=== PATIENT | female | born 1995 | race African-American/Black ===

== ENCOUNTER 2020-10-22 20:00 | Emergency (ER) | payer OTHER, SELFPAY ==
[2020-10-22 20:11] VITALS: BP 108/68; PULSE 94; RESP 16; TEMP 36.3; O2SAT 99
--- NOTE | 2020-10-22 20:26 | ED.DENTAL ---
HPI - Dental/Oral General Chief complaint: Dental/Oral Stated complaint: mouth abscess Time Seen by Provider: 10/22/20 20:21 Source: patient and family Mode of arrival: ambulatory Limitations: no limitations History of Present Illness HPI Narrative: Patient with left-sided facial swelling with history of abscess and decay patient notes moderate aching pain to the left upper posterior molar where she does have some drainage patient on arrival to emergency department in the room no distress has not taken anything for her symptoms on arrival is in the room resting comfortably Related Data Allergies Allergy/AdvReac Type Severity Reaction Status Date / Time No Known Allergies Allergy Verified 10/22/20 20:12 Review of Systems Review of Systems: All systems reviewed & are unremarkable except as noted in HPI and below PMFSH Social History Social History (Updated 10/22/20 @ 20:28 by Joe Solis PA-C) Smoking status: Never smoker Exam Narrative: Exam Narrative: GENERAL: Well-appearing, well-nourished, and in no acute distress. HEAD: Normocephalic, atraumatic. EYES: PERRLA and EOMI. ENT: Nares clear, no rhinorrhea or epistaxis. Mucous membranes moist. Patient with swelling along the left upper gumline with slight swelling of the cheek patient with small amount of drainage from the gumline. Floor of the mouth is soft uvula is midline no trismus or drooling NECK: Supple. No adenopathy or masses. CHEST: Clear to auscultation. No respiratory distress. No wheezes rales or rhonchi HEART: Regular rate and rhythm. No murmur heard. EXTREMITIES: Normal range of motion. No edema. SKIN: Warm, dry, no rash. NEURO: No focal deficits. Alert and oriented x3. PSYCH: Normal mood and affect. Course Course Emergency Course: Patient with dental abscess in no distress will be placed on antibiotics and other medications and given dental referral provided with reasons to return Vital Signs Vital signs: Vital Signs Temperature 97.4 F L 10/22/20 20:11 Pulse Rate 94 10/22/20 20:11 Respiratory Rate 16 10/22/20 20:11 Blood Pressure 108/68 10/22/20 20:11 Pulse Oximetry 99 10/22/20 20:11 Temperature 97.4 F L 10/22/20 20:11 Pulse Rate 94 10/22/20 20:11 Respiratory Rate 16 10/22/20 20:11 Blood Pressure 108/68 10/22/20 20:11 Pulse Oximetry 99 10/22/20 20:11 Procedures Abscess I/D oral: Date of Incision: 10/22/20 Time of Incision: 20:29 Side (if applicable): left Technique: other (18-gauge needle used to make single straight incision) Irrigation: No Packing used?: none I&D Results: Pus and Blood Complications: pain MDM - Dental/Oral MDM Narrative Medical decision making narrative: Paitents pain and complaint coupled with physical findings are consistant with dentalgia. There are no focal signs of space occupying lesions that are compromising to the ariway. The floor of the mouth is soft with no signs of Ludwigs Angina. Patient is without trismus or drooling and able to swallow secreations. Patient is felt appropriate for discharge home with dental follow up. Discharge Plan Discharge Clinical Impression: Dental abscess Patient Disposition: Home, Self-Care Condition: Stable Instructions: Antibiotic Form, Dental Abscess (ED) Additional Instructions: Follow-up with dentistry in the next 7 days. Go to ER for shortness of breath, difficulty breathing, chest pain, fever/chills, weakness, nauseau/vomitting, unable to swallow or open the mouth etc. or any other concerns. Take any prescribed medications as directed. If you do not have a drug allergy to tylenol or motrin and can tolerate it then take tylenol or motrin as needed for discomfort/pain. Prescriptions: New amoxicillin 500 mg capsule 500 mg PO Q8H 10 Days Qty: 30 RF: 0 chlorhexidine gluconate [Peridex] 0.12 % mouthwash 15 ml mucous membrane BID Qty: 1500 RF: 0
[2020-10-22] MEDS: IBUPROFEN 600 MG TABLET PO (20:38)
[2020-10-22] MEDS: HYDROcodone/acetaminophen (*CRX) 5-325 MG TABLET 1 TAB PO (20:38)
== END 2020-10-22 21:22 | disposition home or self-care (01) ==
LOC: ANHED 20:33
PROVIDERS: Emergency Provider Emergency Medicine
DX: K04.7 Periapical abscess without sinus (principal)
CPT/HCPCS: 41800; 99283; A9270